=== PATIENT | male | born 1965 | race Two or more races ===

== ENCOUNTER 2018-07-08 03:36 | Emergency (ER) | payer OTHER ==
[2018-07-08] MEDS ORDERED: KETOROLAC 15 MG/1 ML SDV IVP ONE (04:17)
[2018-07-08] MEDS ORDERED: HYDROmorphONE/DILAUDID 2 MG/ML INJ IVP ONE (04:17)
[2018-07-08] MEDS ORDERED: DEXAMETHASONE 10 MG/ML VIAL IVP ONE (04:18)
--- NOTE | 2018-07-08 04:46 | EDPHY ---
H & P Stated Complaint: chronic back pain Time Seen by Provider: 07/08/18 03:40 HPI/ROS: HPI The patient presents with right-sided low back pain which has been present for the last 2 weeks. Pain started slowly and has gotten progressively worse. It is in his upper lumbar region, right greater than left. He has aching pain which comes and goes throughout the day though was especially bad tonight when he was trying to sleep. He moved from the bed to the floor but could not find a comfortable position. The pain does not radiate down his leg, he does not have any numbness or tingling or weakness of his legs, he does not have any changes in his bowel or bladder function. He does not have a fever. He saw his primary care doctor for this about 2 weeks ago and was prescribed Flexeril and advised to take Advil. He has been doing this. As 2 days ago he went to an emergency department in [place] for the pain and received a prescription for diazepam which he has been taking as well. He has been taking Tylenol and ibuprofen around the clock with diazepam as needed. He also is using a lidocaine patch. He has had minimal improvement in his symptoms. He has started physical therapy is at 1 treatment of this. He has had a plain films performed which she was told was normal. REVIEW OF SYSTEMS 10 systems were reviewed and negative with the exception of the elements mentioned in the history of present illness. PMHx: Type 2 diabetes, hypertension Soc Hx: Housed, here with his family PHYSICAL General Appearance: Alert, uncomfortable appearing Eyes: Pupils equal and round no pallor or injection ENT, Mouth: Mucous membranes moist Respiratory: There are no retractions, lungs are clear to auscultation Cardiovascular: Regular rate and rhythm Gastrointestinal: Abdomen is soft and non-tender, no masses, bowel sounds normal Back: There is tenderness to his paraspinals on the right in the high lumbar region with limited flexion and extension of his spine secondary to pain, there is no midline tenderness Neurological: A&O, 5/5 strength in his lower extremities which is symmetric, sensation is intact to light touch Skin: Warm and dry, no rashes Musculoskeletal: Neck is supple non tender Extremities: symmetrical, full range of motion Psychiatric: Patient is oriented X 3, there is no agitation Source: Patient Exam Limitations: No limitations - Personal History Current Tetanus/Diphtheria Vaccine: Yes Current Tetanus Diphtheria and Acellular Pertussis (TDAP): Yes - Medical/Surgical History Hx Asthma: No Hx Chronic Respiratory Disease: No Hx Diabetes: Yes Hx Cardiac Disease: No Hx Renal Disease: No Hx Cirrhosis: No Hx Alcoholism: No Hx HIV/AIDS: No Hx Splenectomy or Spleen Trauma: No Other PMH: DM T2, HTN, high Choloesterol, chronic back pain - Social History Smoking Status: Never smoked Constitutional: Initial Vital Signs Temperature (C) 36.4 C 07/08/18 03:44 Heart Rate 74 07/08/18 03:44 Respiratory Rate 16 07/08/18 03:44 Blood Pressure 143/99 H 07/08/18 03:44 O2 Sat (%) 99 07/08/18 03:44 O2 Delivery Mode Room Air Allergies/Adverse Reactions: No Known Allergies Allergy (Unverified 07/08/18 03:42) Home Medications: Medication Instructions Recorded Crestor 07/08/18 Metformin HCl 07/08/18 amLODIPine BESYLATE 07/08/18 methylPREDNISolone [Medrol Dose 4 mg PO DAILY 6 Days ea 07/08/18 Rogerio] Medical Decision Making Differential Diagnosis: 53-year-old man with 2 weeks of right-sided low back pain with no paresthesias, weakness, fever, bowel or bladder changes. Has had plain films that are unremarkable. Is unimproved with several treatments at home including ibuprofen , acetaminophen, diazepam, cyclobenzaprine, lidocaine topical patches. Pain became worse tonight in his prevented him from sleeping. Here, he has a normal neurologic exam. Plan for treatment with IV medications. I will start him on a Medrol Dosepak. I have advised him to follow up with his primary care doctor. Differential diagnosis includes muscle spasm, disc herniation, less likely cauda equina given no red flag features. - Data Points Medications Given: Discontinued Medications Dexamethasone (Decadron Injection) 10 mg IVP EDNOW ONE Stop: 07/08/18 04:19 Last Admin: 07/08/18 04:36 Dose: 10 mg Hydromorphone HCl (Dilaudid) 0.5 mg IVP EDNOW ONE Stop: 07/08/18 04:18 Last Admin: 07/08/18 04:38 Dose: 0.5 mg Ketorolac Tromethamine (Toradol) 15 mg IVP EDNOW ONE Stop: 07/08/18 04:18 Last Admin: 07/08/18 04:35 Dose: 15 mg Departure - Departure Disposition: Home, Routine, Self-Care Clinical Impression: Acute lumbar back pain Qualifiers: Back pain laterality: right Sciatica presence: without sciatica Qualified Code( s): M54.5 - Low back pain Condition: Good Instructions: Low Back Strain (ED), Acute Low Back Pain (ED), Lower Back Exercises (ED) Additional Instructions: Please follow-up with your primary care doctor in the next 1-2 days. I am giving you a medication that is a steroid. Because of this, you should closely monitor your blood glucose levels and stop the medication if you are getting high readings. Referrals: Ashlyn Mac MD [Primary Care Provider] - As per Instructions Prescriptions: methylPREDNISolone [Medrol Dose Rogerio] 4 mg PO DAILY 6 Days ea
[2018-07-08 05:43] VITALS: BP 124/86
== END 2018-07-08 05:43 | disposition home or self-care (01) ==
DX: M54.5 Low back pain (principal)
CPT/HCPCS: 96374; J1100; J1170; J1885